=== PATIENT | female | born 1980 | race Caucasian/White ===

== ENCOUNTER 2019-09-30 07:18 | Day surgery (SDC) | payer MEDICAID ==
[~2019-09-30] VITALS: Ht 170.2 cm; Wt 88.5 kg
[2019-09-30] VITALS (12 sets, daily range): BP systolic 110–159; BP diastolic 80–100
[~2019-09-30 07:18] MED LIST: HYDR-4353 PO; IBUP-1984 PO; OMEP20TA5 PO; cefazolin/dext.iso 2gm/100ml 100 ML IV ONE; famotidine 10mg tablet PO ONE; ringers solution, lacted 1,000 ML IV SCH
[2019-09-30] MEDS ORDERED: ringers solution, lacted 1,000 ML IV SCH (07:44)
[2019-09-30] MEDS ORDERED: proCHLORperazine 10 MG/2 ml inj IV PRN (07:45)
[2019-09-30] MEDS ORDERED: meperidine/PF 25mg/ml syringe IV PRN ×2 (07:45)
[2019-09-30] MEDS ORDERED: ondansetron/PF 4mg/2ml inj IV PRN (07:45)
[2019-09-30] MEDS ORDERED: morphine 4 MG/ML inj SYRINge IV PRN (07:45)
[2019-09-30 08:52] LABS: CLARITY,URINE SLIGHTLY CLOUDY (Clear); COLOR,URINE YELLOW (Yellow); GLUCOSE, URINE NEGATIVE (Neg); KETONES,URINE NEGATIVE (Neg); LEUKOCYTE ESTERASE ,URINE NEGATIVE (Neg); NITRITES, URINE NEGATIVE (Neg); OCCULT BLOOD,URINE NEGATIVE (Neg); PROTEIN,URINE NEGATIVE (Neg); UROBILINOGEN,URINE 0.2 E.U/dL (0.2-1.0)
[2019-09-30 08:54] LABS: UA COLLECTION TYPE NON-SPECIFIED
[2019-09-30 08:55] LABS: BASOPHILS # (AUTO) 0.1 X10'3 (0-0.2); BASOPHILS % (AUTO) 0.6 % (0-1); EOSINOPHILS # (AUTO) 0.1 X10'3 (0-0.9); EOSINOPHILS % (AUTO) 1.2 % (0-6); LYMPHOCYTES # (AUTO) 3.4 X10'3 (1.1-4.8); LYMPHOCYTES % (AUTO) 29.6 % (21-51); MEAN CORPUSCULAR HEMOGLOBIN 28.8 PG (27.0-31.0); MEAN CORPUSCULAR HGB CONC 33.9 g/dL (33.0-36.5); MEAN CORPUSCULAR VOLUME 84.8 FL (78-98); MONOCYTES # (AUTO) 0.7 X10'3 (0-0.9); MONOCYTES % (AUTO) 5.9 % (2-12); NEUTROPHILS # (AUTO) 7.2 X10'3 (1.8-7.7); NEUTROPHILS % (AUTO) 62.7 % (42-75); PRE OP HEMATOCRIT 40.9 % (35.0-45.0); PRE OP HEMOGLOBIN 13.9 g/dL (12.0-16.0); PRE OP PLATELET COUNT 249 X10'3 (140-440); RED BLOOD COUNT 4.83 X10'6 (4.20-5.60)
[2019-09-30 08:59] LABS: MUCUS STRANDS MODERATE /LPF (Neg); SQUAMOUS EPITHELIAL CELL,UR MODERATE /LPF (FEW)
[2019-09-30 09:01] LABS: BACTERIA,URINE FEW /HPF (Neg); WBC,URINE 0-4 /HPF (0-4)
[2019-09-30 09:03] LABS: AMORPHOUS PHOSPHATES 1+; RBC,URINE 0-2 /HPF (0-2)
[2019-09-30 09:20] LABS: HCG SERUM QL NEGATIVE
[2019-09-30 09:24] LABS: ALBUMIN 3.6 G/DL (3.4-5.0); ALBUMIN/GLOBULIN RATIO 1.1 (1.1-1.5); ALKALINE PHOSPHATASE 48 IU/L (46-116); BLOOD UREA NITROGEN 19 MG/DL (7-18); BUN/CREATININE RATIO 22.1 (6.6-38.0); CALCIUM 8.9 MG/DL (8.5-10.1); CHLORIDE 105 MMOL/L (99-107); CREATININE 0.86 MG/DL (0.40-0.90); PRE OP ALT 19 U/L (30-65); PRE OP ANION GAP 6 (8-16); PRE OP AST 8 U/L (10-37); PRE OP BILIRUB, TOTAL 0.3 MG/DL (0.0-1.0); PRE OP GLUCOSE 84 MG/DL (70-104); PRE OP POTASSIUM 4.4 MMOL/L (3.4-5.1); PRE OP SODIUM 139 MMOL/L (135-145); TOTAL PROTEIN 6.9 G/DL (6.4-8.2); eGFR 73 ML/MIN
[2019-09-30] MEDS ORDERED: ceFAZolin 1000mg inj ONE ×2 (09:35→10:10)
[2019-09-30] MEDS ORDERED: BUPIVAcaine/PF 2.5 mg/ml (0.25%) 30ml vial ONE ×2 (09:35→10:10)
[2019-09-30] MEDS ORDERED: rocuronium 10mg/ml inj IV ONE (10:44)
[2019-09-30] MEDS ORDERED: dexamethasone sod phosphate 10mg/ml inj ONE (10:44)
[2019-09-30] MEDS ORDERED: sevoflurane 250ml liquid IH ONE (10:44)
[2019-09-30] MEDS ORDERED: midazolam 2 mg/2 ml injection ONE (10:52)
[2019-09-30] MEDS ORDERED: fentaNYL/PF 50MCG/1 ML 2ML syringe ONE (10:52)
[2019-09-30] MEDS ORDERED: LIDOcaine 2% (20mg/ml) 5ml vial ONE (11:00)
[2019-09-30] MEDS ORDERED: ketorolac trometh. 30mg/ml inj. ONE (11:00)
[2019-09-30] MEDS ORDERED: propofol inj 20 ML IV ONE (11:00)
[2019-09-30] MEDS ORDERED: ondansetron/PF 4mg/2ml inj ONE (11:00)
[2019-09-30] MEDS ORDERED: acetaminophen 1,000mg/100ml IV 100 ML IV ONE (11:02)
[2019-09-30] MEDS ORDERED: glycopyrrolate 0.2mg/ml inj ONE (11:33)
[2019-09-30] MEDS ORDERED: neostigmine methylsulfate 1 MG/ML 10ml vial ONE (11:33)
[2019-09-30] MEDS ORDERED: meperidine/PF 50mg/ml syringe ONE (11:39)
--- NOTE | 2019-09-30 11:42 | NUR ---
Received from OR via van, accompanied by Anesthesiologist Trip and report given by Anesthesiolgist. VS stable, pt very sleepy but stable, O2 mask at 10L sats 99%. Right forearm IV 20G at 100cc/hr. Lap sites with bandaids CDI.
[2019-09-30] MEDS: meperidine/PF 25mg/ml syringe IV PRN ×2 (12:26→12:40)
[2019-09-30] MEDS: morphine 4 MG/ML inj SYRINge IV PRN ×2 (12:32→12:51)
--- NOTE | 2019-09-30 13:32 | NUR ---
Pt discharged to vehicle without issue. IV DC'd. Abdomen dressings remain CDI. Pt states she and S/O understand all discharge information. Pain meds already received at home. Pt stable for discharge will call MD office for follow up appt.
== END 2019-09-30 13:32 | disposition home or self-care (01) ==
LOC: PAS 07:18
PROVIDERS: ATTEND Surgery
DX: K80.10 Calculus of gallbladder with chronic cholecystitis without obstruction (principal); K82.8 Other specified diseases of gallbladder; K21.9 Gastro-esophageal reflux disease without esophagitis; F17.210 Nicotine dependence, cigarettes, uncomplicated; Z72.89 Other problems related to lifestyle; Z98.890 Other specified postprocedural states; Z88.1 Allergy status to other antibiotic agents; Z79.899 Other long term (current) drug therapy; Z80.3 Family history of malignant neoplasm of breast
CPT/HCPCS: 36415; 47562; 80053; 81001; 84703; 85025; J0131; J0690; J1100; J1885; J2001; J2175; J2250; J2270; J2405; J2704; J2710; J3010; J3490; J7120; A4215; A4618; A7000

== ENCOUNTER 2022-03-16 06:27 | Emergency (ER) | payer MEDICAID ==
[~2022-03-16] VITALS: Ht 172.7 cm; Wt 98.0 kg
[~2022-03-16 06:27] MED LIST changes: +OMEP20TA43 PO; -OMEP20TA5 PO; -cefazolin/dext.iso 2gm/100ml 100 ML IV ONE; -famotidine 10mg tablet PO ONE; -ringers solution, lacted 1,000 ML IV SCH
[2022-03-16] MEDS ORDERED: ondansetron/PF 4mg/2ml inj IV ONE ×2 (08:00→12:00)
[2022-03-16] MEDS ORDERED: normal saline 1000ML IV soln IVB ONE (08:00)
[2022-03-16] MEDS ORDERED: LORazepam 2 mg/ml vial IV ONE (08:00)
[2022-03-16] MEDS ORDERED: morphine 4 MG/ML inj SYRINge IV ONE ×2 (08:00→10:05)
[2022-03-16 08:28] LABS: BASOPHILS % (AUTO) 0.4 % (0-1); EOSINOPHILS % (AUTO) 0.3 % (0-6); HEMATOCRIT 40.7 % (35.0-45.0); HEMOGLOBIN 13.7 g/dl (12.0-16.0); LYMPHOCYTES # (AUTO) 1.2 X10'3 (1.1-4.8); LYMPHOCYTES % (AUTO) 19.1 % (21-51); MEAN CORPUSCULAR HEMOGLOBIN 27.3 PG (27.0-31.0); MEAN CORPUSCULAR HGB CONC 33.6 g/dL (33.0-36.5); MEAN CORPUSCULAR VOLUME 81.1 FL (78-98); MEAN PLATELET VOLUME 8.4 FL (7.4-10.4); MONOCYTES # (AUTO) 0.5 X10'3 (0-0.9); MONOCYTES % (AUTO) 7.1 % (2-12); NEUTROPHILS # (AUTO) 4.7 X10'3 (1.8-7.7); NEUTROPHILS % (AUTO) 73.1 % (42-75); PLATELET COUNT 210 X10'3 (140-440); RED BLOOD COUNT 5.03 X10'6 (4.20-5.60); WHITE BLOOD COUNT 6.4 X10'3 (4.5-11.0)
[2022-03-16 08:52] LABS: ALANINE AMINOTRANSFERASE 29 U/L (12-78); ALBUMIN 3.2 G/DL (3.4-5.0); ALBUMIN/GLOBULIN RATIO 0.8 (1.1-1.5); ALKALINE PHOSPHATASE 64 IU/L (46-116); ANION GAP 10 (8-16); ASPARTATE AMINO TRANSFERASE 24 U/L (10-37); BILIRUBIN,TOTAL 0.4 MG/DL (0.1-1.0); BLOOD UREA NITROGEN 12 MG/DL (7-18); BUN/CREATININE RATIO 15.2 (6.6-38.0); CALCIUM 8.5 MG/DL (8.5-10.1); CHLORIDE 103 MMOL/L (99-107); CREATININE 0.79 MG/DL (0.40-0.90); GLUCOSE 97 MG/DL (70-104); POTASSIUM 3.2 MMOL/L (3.5-5.1); SODIUM 135 MMOL/L (135-145); TOTAL CARBON DIOXIDE 22.4 MMOL/L (24-32); TOTAL PROTEIN 7.2 G/DL (6.4-8.2); eGFR 79 ML/MIN
[2022-03-16 09:00] LABS: LIPASE 75 U/L (73-393); MAGNESIUM 1.5 MG/DL (1.5-2.4)
[2022-03-16 09:01] LABS: HCG SERUM QL NEGATIVE
[2022-03-16] MEDS ORDERED: potassium CL 10mEq/100ml bag 100 ML IV ONE (09:30)
[2022-03-16 09:46] LABS: CLARITY,URINE CLEAR (Clear); GLUCOSE, URINE NEGATIVE (Neg); KETONES,URINE TRACE mg/dl (Neg); LEUKOCYTE ESTERASE ,URINE NEGATIVE (Neg); NITRITES, URINE NEGATIVE (Neg); OCCULT BLOOD,URINE NEGATIVE (Neg); PH,URINE 5.5 (4.8-8.0); PROTEIN,URINE NEGATIVE (Neg); UROBILINOGEN,URINE 0.2 E.U/dL (0.2-1.0)
[2022-03-16 09:47] LABS: COLOR,URINE STRAW (Yellow); UA COLLECTION TYPE STRAIGHT CATH
--- NOTE | 2022-03-16 10:30 | NUR ---
notified dr kapadia that pt recived total of 6 mg of morphine iv but still in pain as per md she will order 2mg iv prn q 5 mins.
[2022-03-16] MEDS: morphine 2 MG/ML inj. syringe IV PRN ×2 (10:39→11:02)
--- NOTE | 2022-03-16 11:15 | NUR ---
notified dr schwab that pt is influenza A Positive.
[2022-03-16] MEDS ORDERED: TAM75C PO (11:47)
[2022-03-16] MEDS ORDERED: HYDR-3965 PO (11:47)
[2022-03-16 12:12] VITALS: BP 137/94
== END 2022-03-16 12:16 | disposition home or self-care (01) ==
LOC: ER 06:27
DX: J10.1 Influenza due to other identified influenza virus with other respiratory manifestations (principal); Z20.822 Contact with and (suspected) exposure to COVID-19; Z87.448 Personal history of other diseases of urinary system; Z88.1 Allergy status to other antibiotic agents; Z79.899 Other long term (current) drug therapy
CPT/HCPCS: 36415; 74022; 80053; 81003; 83605; 83690; 83735; 84443; 84703; 85025; 85651; 87040; 87502; 87503; 87635; 96361; 96365; 96375; 96376; 99285; C9803; J2060; J2270; J2405; J3480; J7030

== ENCOUNTER 2022-06-13 08:20 | Day surgery (SDC) | payer MEDICAID ==
[2022-06-08 09:54] LABS: BASOPHILS # (AUTO) 0.1 X10'3 (0-0.2); BASOPHILS % (AUTO) 0.8 % (0-1); EOSINOPHILS # (AUTO) 0.2 X10'3 (0-0.9); EOSINOPHILS % (AUTO) 2.3 % (0-6); LYMPHOCYTES # (AUTO) 1.9 X10'3 (1.1-4.8); LYMPHOCYTES % (AUTO) 28.2 % (21-51); MEAN CORPUSCULAR HEMOGLOBIN 26.2 PG (27.0-31.0); MEAN CORPUSCULAR HGB CONC 33.1 g/dL (33.0-36.5); MEAN PLATELET VOLUME 8.1 FL (7.4-10.4); MONOCYTES # (AUTO) 0.6 X10'3 (0-0.9); MONOCYTES % (AUTO) 8.4 % (2-12); NEUTROPHILS # (AUTO) 4.2 X10'3 (1.8-7.7); NEUTROPHILS % (AUTO) 60.3 % (42-75); PRE OP HEMATOCRIT 38.8 % (35.0-45.0); PRE OP HEMOGLOBIN 12.8 g/dL (12.0-16.0); PRE OP PLATELET COUNT 258 X10'3 (140-440); RED BLOOD COUNT 4.91 X10'6 (4.20-5.60); RED CELL DISTRIBUTION WIDTH 13.7 % (11.5-14.5)
[2022-06-08 09:56] LABS: CLARITY,URINE SLIGHTLY CLOUDY (Clear); COLOR,URINE YELLOW (Yellow); GLUCOSE, URINE NEGATIVE (Neg); KETONES,URINE TRACE mg/dl (Neg); LEUKOCYTE ESTERASE ,URINE NEGATIVE (Neg); NITRITES, URINE NEGATIVE (Neg); OCCULT BLOOD,URINE NEGATIVE (Neg); PH,URINE 6.5 (4.8-8.0); PROTEIN,URINE NEGATIVE (Neg); UROBILINOGEN,URINE 0.2 E.U/dL (0.2-1.0)
[2022-06-08 10:00] LABS: UA COLLECTION TYPE VOIDED
[2022-06-08 10:03] LABS: BACTERIA,URINE 1+ /HPF (Neg); MUCUS STRANDS FEW /LPF (Neg); RBC,URINE 0-2 /HPF (0-2); SQUAMOUS EPITHELIAL CELL,UR MANY /LPF (FEW); WBC,URINE 0-4 /HPF (0-4)
[2022-06-08 10:07] LABS: ALBUMIN 3.1 G/DL (3.4-5.0); ALBUMIN/GLOBULIN RATIO 0.8 (1.1-1.5); ALKALINE PHOSPHATASE 68 IU/L (46-116); BLOOD UREA NITROGEN 12 MG/DL (7-18); CALCIUM 8.8 MG/DL (8.5-10.1); CHLORIDE 106 MMOL/L (99-107); CREATININE 0.75 MG/DL (0.40-0.90); PRE OP ALT 30 U/L (30-65); PRE OP ANION GAP 9 (8-16); PRE OP AST 14 U/L (10-37); PRE OP BILIRUB, TOTAL 0.2 MG/DL (0.0-1.0); PRE OP GLUCOSE 86 MG/DL (70-104); PRE OP POTASSIUM 3.9 MMOL/L (3.4-5.1); PRE OP SODIUM 140 MMOL/L (135-145); TOTAL CARBON DIOXIDE 25.2 MMOL/L (24-32); TOTAL PROTEIN 6.9 G/DL (6.4-8.2); eGFR 84 ML/MIN
[~2022-06-13] VITALS: Ht 172.7 cm; Wt 97.3 kg
[2022-06-13] VITALS (16 sets, daily range): BP systolic 119–145; BP diastolic 78–94
[~2022-06-13 08:20] MED LIST changes: +BACL10TA2 PO; +CHOL50004 PO; -HYDR-4353 PO; -IBUP-1984 PO; +LEVO75TA PO; -OMEP20TA43 PO; +PANT40TA54 PO; +PLEC3TAB2 PO; +ceFAZolin inj. 2,000 MG in dextrose 5%-water 100 ML IV ONE; +famotidine 20mg tablet PO ONE; +ringers solution, lacted 1,000 ML IV SCH
[2022-06-13] MEDS ORDERED: sevoflurane 250ml liquid IH ONE (12:14)
[2022-06-13] MEDS ORDERED: ringers solution, lacted 1,000 ML IV SCH (12:15)
[2022-06-13] MEDS ORDERED: ondansetron/PF 4mg/2ml inj IV PRN (12:15)
[2022-06-13] MEDS ORDERED: ketorolac trometh. 30mg/ml inj. IV ONE (12:15)
[2022-06-13] MEDS ORDERED: meperidine/PF 25mg/ml syringe IV PRN ×3 (12:15)
[2022-06-13] MEDS ORDERED: acetaminophen 1,000mg/100ml IV 100 ML IV PRN (12:15)
[2022-06-13] MEDS ORDERED: morphine 4 MG/ML inj SYRINge IV PRN (12:15)
[2022-06-13] MEDS ORDERED: proCHLORperazine 10 MG/2 ml inj IV PRN (12:15)
[2022-06-13] MEDS ORDERED: labetalol 20mg/4ml (5mg/ml) syringe IV PRN (12:15)
[2022-06-13] MEDS ORDERED: hydrALAZINE 20mg/ml inj. IV PRN (12:15)
[2022-06-13] MEDS ORDERED: morphine 2 MG/ML inj. syringe IV PRN (12:15)
[2022-06-13] MEDS ORDERED: midazolam 1 mg/ML 2ml injection ONE (12:19)
[2022-06-13] MEDS ORDERED: fentaNYL /PF 50mcg/ml 5ml ampule ONE (12:26)
[2022-06-13] MEDS ORDERED: dexamethasone sod phosphate 4mg/ml inj. ONE (12:27)
[2022-06-13] MEDS ORDERED: ondansetron/PF 4mg/2ml inj ONE (12:27)
[2022-06-13] MEDS ORDERED: propofol inj 20 ML IV ONE (12:27)
[2022-06-13] MEDS ORDERED: LIDOcaine 2% (20mg/ml) 5ml vial ONE (12:27)
[2022-06-13] MEDS ORDERED: BUPIVAcaine/PF 2.5 mg/ml (0.25%) 30ml vial ONE (12:29)
--- NOTE | 2022-06-13 13:50 | NUR ---
Received from OR via [facility], accompanied by Anesthesiologist DR YOUSSEF and report given by Anesthesiolgist. PT IS GROGGY BUT WAKES EASILY TO VERBAL STIMULI AND ANSWERED QUESTIONS APPROPRIATELY, [place]. PT PLACED ON BEDSIDE MONITOR, VSS. PT IN SR WITH RATE IN 90'S. PT RECEIVING 10L O2 TO MASK AND TOLERATING WELL WITH O2 SAT > 97%. WILL TITRATE DOWN PT TOLERATES. PT HAS 20G PIV TO RT HAND WITH LR INFUSING @ 100ML/HR ORDERED. PT SHIVERING, BEAR HUGGER PLACED ON PT AND WILL TREAT WITH MEDS IF NECESSARY. PT HAS DRSG TO LEFT LATER HIP THAT IS CDI AND RAVINDER DRAIN IN PLACE WITH SEROSANGUINEOUS DRAINAGE NOTED. PT DENEIS PAIN AT THIS TIME AND WILL CONTINUE TO MONITOR.
--- NOTE | 2022-06-13 16:00 | NUR ---
15 ML OF SEROSANGUINEOUS DRAINAGE EMPTIED OUT OF RAVINDER DRAIN AND PT EDUCATED ON HOW TO EMPTY AT HOME. SPECIMEN CONTAINER SENT HOME WITH PT.
--- NOTE | 2022-06-13 16:40 | NUR ---
ALL DISCHARGE CRITERIA HAS BEEN MET. VSS, PAIN AT A TOLERABLE LEVEL, VOIDING AND ABLE TO SAFELY AMBULATE AND TRANSFER SELF. IV TAKEN OUT WITHOUT ANY COMPLICATIONS. ALL DISCHARGE INSTRUCTIONS COVERED WITH PATIENT AND ALL QUESTIONS ANSWERED. PATIENT TAKEN OUT VIA WHEELCHAIR TO PERSONAL VEHICLE WHERE SIGNIFICANT OTHER DROVE PATIENT HOME.
== END 2022-06-13 16:40 | disposition home or self-care (01) ==
LOC: PAS 08:20
PROVIDERS: ATTEND Surgery
DX: D17.1 Benign lipomatous neoplasm of skin and subcutaneous tissue of trunk (principal); M19.90 Unspecified osteoarthritis, unspecified site; E03.9 Hypothyroidism, unspecified; Z87.891 Personal history of nicotine dependence; Z79.899 Other long term (current) drug therapy; Z98.890 Other specified postprocedural states; Z90.49 Acquired absence of other specified parts of digestive tract; Z98.51 Tubal ligation status; K21.9 Gastro-esophageal reflux disease without esophagitis; Z87.442 Personal history of urinary calculi; Z88.1 Allergy status to other antibiotic agents
CPT/HCPCS: 27043; 36415; 80053; 81001; 82948; 85025; 87811; J0690; J1100; J1885; J2175; J2250; J2405; J2704; J3010; J3490; J7030; J7060; J7120; Z7506; Z7508; Z7512; A4618; A7000

== ENCOUNTER 2025-01-07 12:55 | Emergency (ER) | payer BC, OTHER ==
[~2025-01-07] VITALS: Ht 172.7 cm; Wt 104.5 kg
[~2025-01-07 12:55] MED LIST changes: -ceFAZolin inj. 2,000 MG in dextrose 5%-water 100 ML IV ONE; -famotidine 20mg tablet PO ONE; -ringers solution, lacted 1,000 ML IV SCH
[2025-01-07 14:00] LABS: BASOPHILS # (AUTO) 0.1 X10'3 (0-0.2); BASOPHILS % (AUTO) 0.9 % (0-1); EOSINOPHILS # (AUTO) 0.2 X10'3 (0-0.9); EOSINOPHILS % (AUTO) 2.4 % (0-6); HEMATOCRIT 40.7 % (35.0-45.0); HEMOGLOBIN 13.3 g/dl (12.0-16.0); LYMPHOCYTES % (AUTO) 31.3 % (21-51); MEAN CORPUSCULAR HEMOGLOBIN 27.3 PG (27.0-31.0); MEAN CORPUSCULAR HGB CONC 32.8 g/dL (33.0-36.5); MEAN CORPUSCULAR VOLUME 83.2 FL (78-98); MEAN PLATELET VOLUME 8.4 FL (7.4-10.4); MONOCYTES # (AUTO) 0.3 X10'3 (0-0.9); MONOCYTES % (AUTO) 5.4 % (2-12); NEUTROPHILS # (AUTO) 3.8 X10'3 (1.8-7.7); PLATELET COUNT 211 X10'3 (140-440); RED BLOOD COUNT 4.89 X10'6 (4.20-5.60); RED CELL DISTRIBUTION WIDTH 13.5 % (11.5-14.5); WHITE BLOOD COUNT 6.4 X10'3 (4.5-11.0)
[2025-01-07 14:24] LABS: ALANINE AMINOTRANSFERASE 17 U/L (12-78); ALBUMIN 3.8 G/DL (3.4-5.0); ALKALINE PHOSPHATASE 65 IU/L (46-116); ANION GAP 7 (8-16); ASPARTATE AMINO TRANSFERASE 13 U/L (10-37); BILIRUBIN,TOTAL 0.4 MG/DL (0.1-1.0); BLOOD UREA NITROGEN 13 MG/DL (7-18); CALCIUM 9.2 MG/DL (8.5-10.1); CHLORIDE 106 MMOL/L (99-107); GLUCOSE 89 MG/DL (70-104); LIPASE 33 U/L (16-77); POTASSIUM 3.8 MMOL/L (3.5-5.1); SODIUM 142 MMOL/L (135-145); TOTAL CARBON DIOXIDE 28.8 MMOL/L (24-32); TOTAL PROTEIN 7.5 G/DL (6.4-8.2)
[2025-01-07 14:27] LABS: BUN/CREATININE RATIO 14.4 (10.0-20.0); eCRCL 80 ML/MIN; eGFR 68 ML/MIN
[2025-01-07] MEDS: ketorolac trometh 15mg/ml vial 15 MG/ML ML IM ONE (15:24)
[2025-01-07 15:25] VITALS: TEMP 98.2
[2025-01-07 15:42] LABS: URINE HCG NEGATIVE (NEG)
[2025-01-07 15:49] LABS: BILIRUBIN,URINE NEGATIVE (Neg); CLARITY,URINE SLIGHTLY CLOUDY (Clear); COLOR,URINE YELLOW (Yellow); GLUCOSE, URINE NEGATIVE (Neg); KETONES,URINE NEGATIVE (Neg); LEUKOCYTE ESTERASE ,URINE TRACE (Neg); NITRITES, URINE NEGATIVE (Neg); OCCULT BLOOD,URINE NEGATIVE (Neg); PROTEIN,URINE NEGATIVE (Neg); UROBILINOGEN,URINE 0.2 E.U/dL (0.2-1.0)
[2025-01-07 15:57] LABS: UA COLLECTION TYPE URINAL
[2025-01-07 15:59] LABS: BACTERIA,URINE 3+ /HPF (Neg); MUCUS STRANDS FEW /LPF (Neg); RBC,URINE 0-2 /HPF (0-2); RENAL CELLS, URINE MODERATE /HPF; SQUAMOUS EPITHELIAL CELL,UR MODERATE /LPF (FEW); TRANSITIONAL EPI CELLS,URINE FEW /HPF; WBC,URINE 30-50 /HPF (0-4)
[2025-01-07] MEDS ORDERED: CIPR250S2 PO (16:54)
[2025-01-07 16:59] VITALS: BP 147/103; PULSE 75; RESP 16; O2SAT 99
[2025-01-07] MEDS: CefTRIAXone 1000mg IM Kit (w/lidocaine diluent) IM STA (17:11)
== END 2025-01-07 17:15 | disposition home or self-care (01) ==
LOC: ER 12:56
DX: N10 Acute pyelonephritis (principal); F12.90 Cannabis use, unspecified, uncomplicated; Z88.1 Allergy status to other antibiotic agents; Z90.49 Acquired absence of other specified parts of digestive tract; Z79.899 Other long term (current) drug therapy
CPT/HCPCS: 36415; 74176; 80053; 81001; 81025; 83690; 85025; 87077; 87088; 87186; 96372; 99285; J0696; J1885